=== PATIENT | male | born 1995 | race Caucasian/White ===

== ENCOUNTER 2016-09-08 16:55 | Inpatient (IN) | payer OTHER ==
[2016-09-08 17:58] LABS: Hematocrit 44 % (42-52); Hemoglobin 14.5 g/dl (14.0-18.0); Mean Corpuscular HGB Conc 33 g/dl (31-36); Mean Corpuscular Hemoglobin 29 pg (27-31); Mean Corpuscular Volume 88 fL (80-94); Mean Platelet Volume 8 um3 (7.4-10.4); Red Blood Count 4.97 10^6/ul (4.0-5.4); Red Cell Distribution Width 13 % (10.5-15); White Blood Count 4.8 10^3/ul (3.5-10.8)
[2016-09-08 18:12] LABS: ALT 77 U/L (7-52); AST 32 U/L (13-39); Albumin 4.6 g/dL (3.2-5.2); Alkaline Phosphatase 58 U/L (34-104); Anion Gap 4 mmol/L (2-11); BUN/Creatinine Ratio 8.2 (8-20); Blood Urea Nitrogen 7 mg/dL (6-24); CO2 Carbon Dioxide 31 mmol/L (22-32); Calcium 9.7 mg/dL (8.6-10.3); Chloride 102 mmol/L (101-111); EGFR Non-African American 112.7 (>60); Globulin 3.4 g/dL (2-4); Glucose 91 mg/dL (70-100); Potassium 3.8 mmol/L (3.5-5.0); Sodium 137 mmol/L (133-145)
[2016-09-08 18:18] LABS: Benzodiazepine Urine Screen None Detected (None Detect)
[2016-09-08 18:33] LABS: Acetaminophen < 15 mcg/mL; Alcohol < 10 mg/dL (<10); Salicylate < 2.50 mg/dL (<30)
[2016-09-08 18:37] LABS: Urine Bilirubin Negative (Negative); Urine Glucose Negative (Negative); Urine Nitrite Negative (Negative)
[2016-09-08 18:42] LABS: TSH (Thyroid Stimulating Horm) 1.16 mcIU/mL (0.34-5.60)
[2016-09-09] MEDS ORDERED: Acetaminophen TAB* 325 MG PO PRN (06:37)
[2016-09-09] MEDS ORDERED: Al Hydrox/Mg Hydrox/Simet LIQ* 30 ML UDC PO PRN (06:37)
[2016-09-09] MEDS: Fluticasone NASAL SPRAY 50MCG* 16 gm SPRAY BTL BOTH NARES SCH (10:53)
[2016-09-09] MEDS: Montelukast Sodium TAB* 10 MG PO SCH (10:54)
[2016-09-09] MEDS: Vitamin THERAPEUTIC TAB PO SCH (10:54)
[2016-09-09] MEDS: Fluoxetine LIQ* 20 MG/5 ML UDC PO SCH (10:54)
[2016-09-09] MEDS: CMCS:Atomoxetine(NF) 25 MG CAP PO SCH (10:54)
--- NOTE | 2016-09-09 11:22 | PN ---
MHU: Group Therapy Note - Service Type Service Type: [id number] Group Psychotherapy - Cognitive Behavioral Group Psychotherapy Note: Justice presented with flat and unvariable affect in programming. He responded to prompting in a direct fashion, and did not initiate discussion with either peers or staff.
--- NOTE | 2016-09-09 13:07 | HP ---
H&P (Free Text) History and Physical: HPI: ---- 20yo male patient with PPHx significant for Schizoid Personality d/o and ADHD presents to the [facility] by 945 sent from therapist after patient made suicidal statements in session. Patient reported thoughts of ending his life via jumping from his deck or swerving his car in traffic. Patient describes these thoughts as impulse thoughts which are fleeting. Patient denies hx of SI with plans. He denies hx of SIB and denies hx of suicide attempt. Patient can't identify a stressor, but reports has experienced this depression for a few months, and reports hx of prior depressive episodes starting in HS. Patient reports experiencing SI for ~2 weeks now. He describes them as "abstract thoughts", "more like pictures of hurting someone or of me getting hurt. Patient describes them as intrusive recently. He reports associated increased apathy, decreased energy and motivation. Patient reports decreased memory and concentration. He has not been reprimanded at work, but is concerned with his decreased productivity. He reports poor sleep, avg of 5 hrs per night, which is broken up. He rates the intensity of depression he feels today at 7/10. Patient endorses anhedonia. He denies current SI/HI and AH/VH. Patient reports no symptoms of psychosis nor were any noted on interview. Patient is in therapy. Patient on Straterra for ADHD and Prozac 15mg for mood. He reports Prozac is new, and is being up-titrated. He reports recent trial of Cymbalta was ineffective. Patient reports no hx of childhood emotional, physical, or sexual abuse. Patient reports no hx of abuse of alcohol and no illicit substance use hx. Patient lives alone. He denies access to firearms. She is amenable to med modification. Past Psych Hx: Inpt - This is patient's 1st Outpt - Seen at [facility] and has psychotherapy with Kika Peterson Psychotropic med hx - Prozac, Strattera, Cymbalta Suicide attempt Hx SIB Hx: Patient reports no hx of suicide attempt. Patient reports no hx of SIB. Substance Hx: Patient denies hx of alcohol abuse. Patient denies hx of use of illicit substances. UDS (-) for all substances on admission. Trauma Hx: Patient reports no hx of childhood emotional, physical, or sexual abuse. PMHx: ------ Patient denies hx of head trauma with LOC. Patient denies hx of seizures. Allergies: --------- Peanut Oil Allergy (Verified 09/09/16 10:24) Swelling Tree Nuts Allergy (Verified 09/09/16 10:24) Swelling dust and mold Allergy (Uncoded 09/09/16 10:24) Difficulty Breathing beans Adverse Reaction (Uncoded 09/09/16 10:24) Nausea And Vomiting legumes Adverse Reaction (Uncoded 09/09/16 10:24) Nausea And Vomiting Family Hx: --------- Patient reports, to his knowledge there is no one the family who has attempted or completed suicide. Patient reports, to his knowledge there is no one the family with NOE issues. Patient reports, to his knowledge there is no one the family with MH issues. Social Hx: -Patient born and raised in [place], [place] -Raised by mom and dad -Has 1 sibling, younger brother -Does not feel close with family -Reports his preference is solitude -Single, never , no children -Currently enrolled in a PhD program at [employer] -No legal hx -No access to firearms HOME MEDS: Home Medications Medication Instructions Recorded Confirmed Type Atomoxetine(NF) [Strattera(NF)] 50 mg PO DAILY 09/08/16 09/08/16 History Fluoxetine HCl [Prozac] 15 mg PO DAILY 09/08/16 09/08/16 History Fluticasone NASAL SPRAY 50MCG* 2 spray BOTH NARES DAILY 09/08/16 09/08/16 History [Flonase NASAL SPRAY 50MCG*] Melatonin 5 mg PO BEDTIME 09/08/16 09/08/16 History Montelukast Sodium TAB* [Singulair 10 mg PO DAILY 09/08/16 09/08/16 History TAB*] VITALS: Vital Signs (72 hours) 09/08/16 09/08/16 09/09/16 17:28 18:33 07:30 Temperature 98 F 97.8 F 97.5 F Pulse Rate 79 88 102 Respiratory 16 16 16 Rate Blood Pressure 108/69 117/64 123/72 (mmHg) O2 Sat by Pulse 99 99 99 Oximetry 09/09/16 09/09/16 09/09/16 08:12 08:25 09:33 Temperature 98.4 F 97.5 F Pulse Rate 96 102 Respiratory 16 16 16 Rate Blood Pressure 119/69 123/72 (mmHg) O2 Sat by Pulse 99 Oximetry 09/10/16 09/10/16 07:55 13:16 Temperature 98.4 F Pulse Rate 79 Respiratory 16 18 Rate Blood Pressure 85/49 (mmHg) O2 Sat by Pulse 98 Oximetry LABS: ----- Laboratory Tests 09/08/16 09/08/16 09/08/16 17:33 17:33 17:44 WBC 4.8 RBC 4.97 Hgb 14.5 Hct 44 MCV 88 MCH 29 MCHC 33 RDW 13 Plt Count 269 MPV 8 Neut % (Auto) 56.5 Lymph % (Auto) 32.6 [place] % (Auto) 7.7 Eos % (Auto) 2.5 Baso % (Auto) 0.7 Absolute Neuts (auto) 2.7 Absolute Lymphs (auto) 1.6 Absolute Monos (auto) 0.4 Absolute Eos (auto) 0.1 Absolute Basos (auto) 0 Absolute Nucleated RBC 0 Nucleated RBC % 0.1 Sodium Potassium Chloride Carbon Dioxide Anion Gap BUN Creatinine Est GFR ( Amer) Est GFR (Non-Af Amer) BUN/Creatinine Ratio Glucose Calcium Total Bilirubin AST ALT Alkaline Phosphatase Total Protein Albumin Globulin Albumin/Globulin Ratio TSH Urine Color Straw Urine Appearance Clear Urine pH 8.0 Ur Specific [place] 1.005 L Urine Protein Negative Urine Ketones Negative Urine Blood Negative Urine Nitrate Negative Urine Bilirubin Negative Urine Urobilinogen Negative Ur Leukocyte Esterase Negative Urine Glucose Negative Urine Ascorbic Acid TNP Salicylates Urine Opiates Screen None detected Acetaminophen Ur Barbiturates Screen None detected Ur Phencyclidine Scrn None detected Ur Amphetamines Screen None detected U Benzodiazepines Scrn None detected Urine Cocaine Screen None detected U Cannabinoids Screen None detected Serum Alcohol 09/08/16 17:44 WBC RBC Hgb Hct MCV MCH MCHC RDW Plt Count MPV Neut % (Auto) Lymph % (Auto) [place] % (Auto) Eos % (Auto) Baso % (Auto) Absolute Neuts (auto) Absolute Lymphs (auto) Absolute Monos (auto) Absolute Eos (auto) Absolute Basos (auto) Absolute Nucleated RBC Nucleated RBC % Sodium 137 Potassium 3.8 Chloride 102 Carbon Dioxide 31 Anion Gap 4 BUN 7 Creatinine 0.85 Est GFR ( Amer) 145.0 Est GFR (Non-Af Amer) 112.7 BUN/Creatinine Ratio 8.2 Glucose 91 Calcium 9.7 Total Bilirubin 0.70 AST 32 ALT 77 H Alkaline Phosphatase 58 Total Protein 8.0 Albumin 4.6 Globulin 3.4 Albumin/Globulin Ratio 1.4 TSH 1.16 Urine Color Urine Appearance Urine pH Ur Specific [place] Urine Protein Urine Ketones Urine Blood Urine Nitrate Urine Bilirubin Urine Urobilinogen Ur Leukocyte Esterase Urine Glucose Urine Ascorbic Acid Salicylates < 2.50 Urine Opiates Screen Acetaminophen < 15 Ur Barbiturates Screen Ur Phencyclidine Scrn Ur Amphetamines Screen U Benzodiazepines Scrn Urine Cocaine Screen U Cannabinoids Screen Serum Alcohol < 10 MSE: ----- Appearance - thin build male, looks stated age, fair hygeine, in NAD Behavior -calm, cooperative Speech - RRR, prosody wnl Eye Contact - good Mood - "depressed" Affect - depressed TP - linear TC - concerned with poor sleep and energy and decreased productivity at work Perception - no signs of psychosis reported or noted Orientation - A&Ox3 Cognition - intact Insight - poor to fair Judgement - poor to fair SI / HI - SI on admission, currently denies both ASSESSMENT: 1. Unspecified depressive d/o 2. Schizoid Personality d/o 3. ADHD PLAN: ------- 1. Continue admission to the [facility] for safety and symptom mx. 2. Continue Strattera 50mg po daily for ADHD mx. 3. Increase Prozac from 15mg to 30mg po daily for anxiety/mood. 4. Patient gives informed consent to start Wellbutin 75mg po BID for depressive symptoms. 5. Continue Melatonin 5mg po qhs for insomnia. 6. Patient gives informed consent to start Trazodone 50g po qhs for insomnia. 7. Continue obtaining collateral information from [facility] and
[2016-09-09] MEDS: Melatonin (NF) ** ENTER STRENGTH IN LABEL DIRECTIONS PO SCH (21:45)
[2016-09-09] MEDS: buPROPion TAB* 75 MG PO SCH (21:45)
[2016-09-09] MEDS: traZODone TAB* 50 MG TAB PO SCH (21:45)
[2016-09-10] MEDS: Montelukast Sodium TAB* 10 MG PO SCH (08:59)
[2016-09-10] MEDS: Vitamin THERAPEUTIC TAB PO SCH (08:59)
[2016-09-10] MEDS: CMCS:Atomoxetine(NF) 25 MG CAP PO SCH (08:59)
[2016-09-10] MEDS: Fluticasone NASAL SPRAY 50MCG* 16 gm SPRAY BTL BOTH NARES SCH (08:59)
[2016-09-10] MEDS: buPROPion TAB* 75 MG PO SCH ×2 (09:00→20:08)
[2016-09-10] MEDS: Fluoxetine LIQ* 20 MG/5 ML UDC PO SCH (09:24)
--- NOTE | 2016-09-10 17:44 | PN ---
Subjective - Subjective Service Type: 64540 Hosp care 15 min low complexity Subjective: Patient noted to participate in groups and milieu activities. Patient's affect is noticeably more full and his rate of speech and response is quicker. Patient reports ongoing depression, but reports a 3/10 intensity today down from the 6/10 intensity depression he felt on admission. Patient reports med compliance and denies med s/e. Patient reports his energy has increased and he noticed it was easier to get out of bed and start his day today. He reports increased interest in activities. He reports he has been "trying to improve my drawing skills". Patient visible in the milieu, but socially isolated. He reports improved sleep on Trazodone, reporting 9-10 hrs last night with no breaks in his sleep. He reports appetite is wnl. Patient denies SI/HI and AH/VH. Objective - Appearance Appearance: Thin Framed Dysmorphic Features: No Hygiene: Normal Grooming: Fairly Well Kept - Behavior Psychomotor Activities: Normal Exhibits Abnormal Movement: Yes - Attitude and Relatedness Attitude and Relatedness: Cooperative Eye Contact: Fair - Speech Quality: Unpressured Latencies: Normal Quantity: Appropriate - Mood Patient's Decription of Mood: "Okay" - Affect Observed Affect: Fair Affect Consistent with: Dysphoria - Thought Process Patient's Thought Process: Coherent Thought Content: No Passive Wish, No Suicidal Planning, No Homicidal Ideation, No Paranoid Ideation - Sensorium Experiencing Hallucinations: No, Sensorium is Clear Type of Hallucinations: Visual: No, Auditory: No, Command: No - Level of Consciousness Level of Consciousness: Alert Orientation: Yes Intact, Yes Orientated to Time, Yes Orientated to Place, Yes Orientated to Person - Impulse Control Impulse Control: Intact - Insight and Judgement Insight and Judgement: Fair - Group Participation Particating in Group Activities: Yes - Medication Management Medication Management Adherence: Yes Assessment - Assessment Merits Inpatient Hospitalization: For Immediate Safety, For Stabilization Inpatient DSM-IV Dx: 1. Unspecified depressive d/o. 2. Schizoid Personality d/ o. 3. ADHD Plan - Plan Treatment Plan: Name: GIOVANI CARLOS Birthdate: 1995 [id number] PLAN: ------- 1. Continue admission to the [facility] for safety and symptom mx. 2. Continue Strattera 50mg po daily for ADHD mx. 3. Continue Prozac 30mg po daily for anxiety/mood. 4. Continue Wellbutin 75mg po BID for depressive symptoms. 5. Continue Melatonin 5mg po qhs for insomnia. 6. Continue Trazodone 50g po qhs for insomnia. 7. Continue obtaining collateral information from [facility] and therapist Dr. Monae Salvador. 8. Patient to participate in milieu activities and groups. Continued Medication Management: Start Medication Medications: Current Medications Acetaminophen (Tylenol Tab*) 650 mg PO Q4H PRN PRN Reason: PAIN or TEMP > 101 F Al Hydrox/Mg Hydrox/Simethicone (Maalox Plus*) 30 ml PO Q4H PRN PRN Reason: INDIGESTION Atomoxetine HCl (Strattera(Nf)) 50 mg PO DAILY [facility] Last Admin: 09/10/16 08:59 Dose: 50 mg Bupropion HCl (Wellbutrin Tab*) 75 mg PO BID [facility] Last Admin: 09/10/16 09:00 Dose: 75 mg Fluoxetine HCl (Fluoxetine Liq*) 15 mg PO DAILY [facility] Last Admin: 09/10/16 09:24 Dose: 15 mg Fluticasone Propionate (Flonase Nasal [place] 50mcg*) 2 spray BOTH NARES DAILY [facility] Last Admin: 09/10/16 08:59 Dose: 2 spray Melatonin (Melatonin (Nf)) 1 tab PO BEDTIME [facility] Last Admin: 09/09/16 21:45 Dose: Not Given Montelukast Sodium (Singulair Tab*) 10 mg PO DAILY [facility] Last Admin: 09/10/16 08:59 Dose: 10 mg Multivitamins (Theragran Tab*) 1 tab PO DAILY [facility] Last Admin: 09/10/16 08:59 Dose: 1 tab Trazodone HCl (Desyrel Tab*) 50 mg PO BEDTIME [facility] Last Admin: 09/09/16 21:45 Dose: 50 mg - Discharge Plan Discharge Plan: Outpatient Follow Up Outpatient Program: Private Clinician(s)
[2016-09-10] MEDS: Melatonin (NF) ** ENTER STRENGTH IN LABEL DIRECTIONS PO SCH (21:05)
[2016-09-10] MEDS: traZODone TAB* 50 MG TAB PO SCH (21:46)
[2016-09-11 08:10] VITALS: BP 102/64
[2016-09-11] MEDS: CMCS:Atomoxetine(NF) 25 MG CAP PO SCH (09:44)
[2016-09-11] MEDS: buPROPion TAB* 75 MG PO SCH (09:46)
[2016-09-11] MEDS: Fluoxetine LIQ* 20 MG/5 ML UDC PO SCH (09:46)
[2016-09-11] MEDS: Fluticasone NASAL SPRAY 50MCG* 16 gm SPRAY BTL BOTH NARES SCH (09:46)
[2016-09-11] MEDS: Vitamin THERAPEUTIC TAB PO SCH (09:47)
[2016-09-11] MEDS: Montelukast Sodium TAB* 10 MG PO SCH (09:47)
--- NOTE | 2016-09-11 11:36 | DS ---
Subjective - Subjective Service Types: [id number] [facility] Day Mgmt simple under 30 min Discharge Date: 09/11/16 Subjective: Patient in group on my approach. His affect is again brighter than the day before. His pace is quicker as well. His response time and rate of speech are also improved from yesterday. Patient reports benefit from groups and understands medications are one part, but that engagement in psychotherapy is also important to diminishing symptoms and the frequency of depressive episodes. Patient again denies med s/e. He reports improved sleep , energy, and motivation. He denies SI/HI and AH/VH. Patient asked to present to his local ED if SI recurs. He was amenable and acknowledged understanding of his family and community supports. Objective - Appearance Appearance: Thin Framed Dysmorphic Features: No Hygiene: Normal Grooming: Well Kept - Behavior Psychomotor Activities: Normal Exhibits Abnormal Movement: No - Attitude and Relatedness Attitude and Relatedness: Cooperative Eye Contact: Fair - Speech Quality: Unpressured Latencies: Normal Quantity: Appropriate - Mood Patient's Decription of Mood: "Okay" - Affect Observed Affect: Fair Affect Consistent with: Euthymia - Thought Process Patient's Thought Process: Coherent Thought Content: No Passive Wish, No Suicidal Planning, No Homicidal Ideation, No Paranoid Ideation - Sensorium Experiencing Hallucinations: No, Sensorium is Clear Type of Hallucinations: Visual: No, Auditory: No, Command: No - Level of Consciousness Level of Consciousness: Alert Orientation: Yes Intact, Yes Orientated to Time, Yes Orientated to Place, Yes Orientated to Person - Impulse Control Impulse Control: Intact - Insight and Judgement Insight and Judgement: Fair - Group Participation Particating in Group Activities: Yes - Medication Management Medication Management Adherence: Yes Treatment Course & Assessment Clinical Course & Impression: HOSPITAL COURSE: 20yo male patient with PPHx significant for Schizoid Personality d/o and ADHD presents to the [facility] ED by 945 sent from therapist after patient made suicidal statements in session. Patient reported thoughts of ending his life via jumping from his deck or swerving his car in traffic. Patient describes these thoughts as impulse thoughts which are fleeting. Patient denies hx of SI with plans. He denies hx of SIB and denies hx of suicide attempt. Patient reports experiencing SI for ~2 weeks now. Patient describes them as intrusive recently. He reports associated increased apathy, decreased energy and motivation. Patient reports decreased memory and concentration. He has not been reprimanded at work, but is concerned with his decreased productivity. He reports poor sleep, avg of 5 hrs per night, which is broken up. He rates the intensity of depression he feels today at 7/10. Patient also endorses anhedonia. On admission, patient gives informed consent to start Wellbutrin 75mg po BID. Patient is on Straterra for ADHD and Prozac 15mg for mood. He reports Prozac is new, and is being up-titrated. Prozac was continued at 15mg po daily. For insomnia, patient was started on Trazodone 50mg po qhs. Patient was med compliant and tolerated the new med regimen without reports of s/e's. Patient was noticeably more full in affect and energetic 24hrs after initiation of Wellbutrin. He was less bradykinetic and less delayed in rate of speech and response time to questions. On day of discharge, patient showed further improvement in manner and affect. Patient reported fair sleep and appetite. He reported benefit from groups and continued to report benefit to mood on the new psychotropic med regimen. Patient was psychiatrically stable. He again today denies SI/HI and AH/VH. He requested discharge. Patient's target symptoms on admission have improved significantly. He reports being amenable to discharge plan. He has discussed his hospitalization with his parents. Patient will be discharged to home by [facility]. PERTINENT LABS: Laboratory Tests 09/08/16 09/08/16 09/08/16 17:33 17:33 17:44 WBC 4.8 RBC 4.97 Hgb 14.5 Hct 44 MCV 88 MCH 29 MCHC 33 RDW 13 Plt Count 269 MPV 8 Neut % (Auto) 56.5 Lymph % (Auto) 32.6 [place] % (Auto) 7.7 Eos % (Auto) 2.5 Baso % (Auto) 0.7 Absolute Neuts (auto) 2.7 Absolute Lymphs (auto) 1.6 Absolute Monos (auto) 0.4 Absolute Eos (auto) 0.1 Absolute Basos (auto) 0 Absolute Nucleated RBC 0 Nucleated RBC % 0.1 Sodium Potassium Chloride Carbon Dioxide Anion Gap BUN Creatinine Est GFR ( Amer) Est GFR (Non-Af Amer) BUN/Creatinine Ratio Glucose Calcium Total Bilirubin AST ALT Alkaline Phosphatase Total Protein Albumin Globulin Albumin/Globulin Ratio TSH Urine Color Straw Urine Appearance Clear Urine pH 8.0 Ur Specific [place] 1.005 L Urine Protein Negative Urine Ketones Negative Urine Blood Negative Urine Nitrate Negative Urine Bilirubin Negative Urine Urobilinogen Negative Ur Leukocyte Esterase Negative Urine Glucose Negative Urine Ascorbic Acid TNP Salicylates Urine Opiates Screen None detected Acetaminophen Ur Barbiturates Screen None detected Ur Phencyclidine Scrn None detected Ur Amphetamines Screen None detected U Benzodiazepines Scrn None detected Urine Cocaine Screen None detected U Cannabinoids Screen None detected Serum Alcohol 09/08/16 17:44 WBC RBC Hgb Hct MCV MCH MCHC RDW Plt Count MPV Neut % (Auto) Lymph % (Auto) [place] % (Auto) Eos % (Auto) Baso % (Auto) Absolute Neuts (auto) Absolute Lymphs (auto) Absolute Monos (auto) Absolute Eos (auto) Absolute Basos (auto) Absolute Nucleated RBC Nucleated RBC % Sodium 137 Potassium 3.8 Chloride 102 Carbon Dioxide 31 Anion Gap 4 BUN 7 Creatinine 0.85 Est GFR ( Amer) 145.0 Est GFR (Non-Af Amer) 112.7 BUN/Creatinine Ratio 8.2 Glucose 91 Calcium 9.7 Total Bilirubin 0.70 AST 32 ALT 77 H Alkaline Phosphatase 58 Total Protein 8.0 Albumin 4.6 Globulin 3.4 Albumin/Globulin Ratio 1.4 TSH 1.16 Urine Color Urine Appearance Urine pH Ur Specific [place] Urine Protein Urine Ketones Urine Blood Urine Nitrate Urine Bilirubin Urine Urobilinogen Ur Leukocyte Esterase Urine Glucose Urine Ascorbic Acid Salicylates < 2.50 Urine Opiates Screen Acetaminophen < 15 Ur Barbiturates Screen Ur Phencyclidine Scrn Ur Amphetamines Screen U Benzodiazepines Scrn Urine Cocaine Screen U Cannabinoids Screen Serum Alcohol < 10 Discharge Meds: Atomoxetine HCl (Strattera(Nf)) 50 mg PO DAILY [facility] Bupropion HCl (Wellbutrin Tab*) 75 mg PO BID [facility] Fluoxetine HCl 15 mg PO DAILY [facility] Fluticasone Propionate (Flonase Nasal [place] 50mcg*) 2 spray BOTH NARES DAILY [facility] Melatonin (Melatonin (Nf)) 1 tab PO BEDTIME [facility] Montelukast Sodium (Singulair Tab*) 10 mg PO DAILY [facility] Trazodone HCl (Desyrel Tab*) 50 mg PO BEDTIME [facility] Consultants: none Follow-Up: Appts for within the next 2 weeks scheduled by ANNABELLA for [facility](psychiatry and counseling) Clear for Discharge: Adequate Clinical Respons, Acceptable Safety Profile Inpatient DSM-IV Dx: 1. Unspecified depressive d/o. 2. Schizoid Personality d/ o. 3. ADHD Discharge Planning - Discharge Planning Discharge Plan: Outpatient Follow Up Outpatient Program: Counseling/Psych Services at [place] Recommendations for Continuing Care: Psychotherapy Medications: Current Medications Acetaminophen (Tylenol Tab*) 650 mg PO Q4H PRN PRN Reason: PAIN or TEMP > 101 F Al Hydrox/Mg Hydrox/Simethicone (Maalox Plus*) 30 ml PO Q4H PRN PRN Reason: INDIGESTION Atomoxetine HCl (Strattera(Nf)) 50 mg PO DAILY [facility] Last Admin: 09/11/16 09:44 Dose: 50 mg Bupropion HCl (Wellbutrin Tab*) 75 mg PO BID [facility] Last Admin: 09/11/16 09:46 Dose: 75 mg Fluoxetine HCl (Fluoxetine Liq*) 15 mg PO DAILY [facility] Last Admin: 09/11/16 09:46 Dose: 15 mg Fluticasone Propionate (Flonase Nasal [place] 50mcg*) 2 spray BOTH NARES DAILY [facility] Last Admin: 09/11/16 09:46 Dose: 2 spray Melatonin (Melatonin (Nf)) 1 tab PO BEDTIME [facility] Last Admin: 09/10/16 21:05 Dose: Not Given Montelukast Sodium (Singulair Tab*) 10 mg PO DAILY [facility] Last Admin: 09/11/16 09:47 Dose: 10 mg Multivitamins (Theragran Tab*) 1 tab PO DAILY [facility] Last Admin: 09/11/16 09:47 Dose: 1 tab Trazodone HCl (Desyrel Tab*) 50 mg PO BEDTIME [facility] Last Admin: 09/10/16 21:46 Dose: 50 mg Discharge Planning: Prescriptions provided for discharge [x] Yes [] No Follow up care details as per social work arrangements. Patient response to discharge plan: [] eager for discharge [x] agreeable with discharge plan [] ambivalent about discharge [] disagrees with discharge today
--- NOTE | 2016-09-11 11:58 | PN ---
MHU: Group Therapy Note - Service Type Service Type: [id number] Group Psychotherapy - Cognitive Behavioral Group Therapy ( CBT):Patient was attentive and participatory in CBT programming this morning, and remained in good behavioral control. Patient expressed positive insights regarding relevant treatment interventions and goals.
--- NOTE | 2016-09-15 11:21 | ED ---
I, Wan,Roselia, scribed for Rey Chavez MD on 09/08/16 at 1721 . Psychiatric Complaint - HPI Summary HPI Summary: This 20 y/o male [employer] student presents to ED as 945 for positive SI today. Pt is currently on prozac with last dose this morning. Negative OD or any other substance abuse today such as alcohol. Positive sleep disturbance. Negative paranoid thought or auditory hallucination. - History Of Current Complaint Hx Obtained From: Patient Onset/Duration: Lasting Hours, Still Present Timing: Constant Character: Depressed Aggravating Factor(s): Nothing Alleviating Factor(s): Nothing Related History: Positive For: Prior Psychiatric Issues Has Suicidal: Reports: Thoughts - Allergies/Home Medications Allergies/Adverse Reactions: Allergies Allergy/AdvReac Type Severity Reaction Status Date / Time Peanut Oil Allergy Swelling Verified 09/09/16 10:24 Tree Nuts Allergy Swelling Verified 09/09/16 10:24 dust and mold Allergy Difficulty Uncoded 09/09/16 10:24 Breathing beans AdvReac Nausea And Uncoded 09/09/16 10:24 Vomiting legumes AdvReac Nausea And Uncoded 09/09/16 10:24 Vomiting Home Medications: Home Medications Atomoxetine(NF) [Strattera(NF)] 50 mg PO DAILY 09/08/16 [History Confirmed 09/08] Fluticasone NASAL SPRAY 50MCG* [Flonase NASAL SPRAY 50MCG*] 2 spray BOTH NARES DAILY 09/08/16 [History Confirmed 09/08/16] Melatonin 5 mg PO BEDTIME 09/08/16 [History Confirmed 09/08/16] Montelukast Sodium TAB* [Singulair 10 MG TAB*] 10 mg PO DAILY 09/08/16 [History Confirmed 09/08/16] PMH/Surg Hx/FS Hx/Imm Hx Cardiovascular History: Denies: Hx Myocardial Infarction Psychiatric History: Reports: Hx Depression - Family History Known Family History: Negative: Diabetes - Social History Occupation: Student Alcohol Use: Occasionally Hx Tobacco Use: No Smoking Status (MU): Never Smoked Tobacco Review of Systems Negative: Fever, Chills Negative: Erythema Negative: Sore Throat Negative: Chest Pain Negative: Shortness Of Breath, Cough Negative: Abdominal Pain, Nausea Negative: dysuria, hematuria Negative: Myalgia, Edema Negative: Rash Neurological: Other - Negative dizziness All Other Systems Reviewed And Are Negative: Yes Physical Exam - Summary Physical Exam Summary: Constitutional: Well-developed, Well-nourished, Alert. (-) Distressed Skin: Warm, Dry HENT: Normocephalic; Atraumatic Eyes: Conjunctiva normal Neck: Musculoskeletal ROM normal neck. (-) JVD, (-) Stridor, (-) Tracheal deviation Cardio: Rhythm regular, rate normal, Heart sounds normal; Intact distal pulses; The pedal pulses are 2+ and symmetric. Radial pulses are 2+ and symmetric. (-) Murmur Pulmonary/Chest wall: Effort normal. (-) Respiratory distress, (-) Wheezes, (-) Rales Abd: Soft, (-) Tenderness, (-) Distension, (-) Guarding, (-) Rebound Musculoskeletal: (-) Edema Lymph: (-) Cervical adenopathy Neuro: Alert, Oriented x3 Psych: Mood and affect Normal Triage Information Reviewed: Yes Vital Signs On Initial Exam: Initial Vitals Temp Pulse Resp BP Pulse Ox 36.6 C 79 16 108/69 99 09/08/16 17:28 09/08/16 17:28 09/08/16 17:28 09/08/16 17:28 09/08/16 17:28 Vital Signs Reviewed: Yes Diagnostics - Vital Signs Vital Signs Temp Pulse Resp BP Pulse Ox 09/09/16 08:25 36.4 C 102 16 123/72 99 09/09/16 08:12 36.9 C 96 16 119/69 09/09/16 07:30 36.4 C 102 16 123/72 99 09/08/16 18:33 36.6 C 88 16 117/64 99 09/08/16 17:28 36.6 C 79 16 108/69 99 - Laboratory Lab Results: Lab Results 09/08/16 09/08/16 09/08/16 Range/Units 17:33 17:33 17:44 WBC 4.8 (3.5-10.8) 10^3/ul RBC 4.97 (4.0-5.4) 10^6/ul Hgb 14.5 (14.0-18.0) g/dl Hct 44 (42-52) % MCV 88 (80-94) fL MCH 29 (27-31) pg MCHC 33 (31-36) g/dl RDW 13 (10.5-15) % Plt Count 269 (150-450) 10^3/ul MPV 8 (7.4-10.4) um3 Neut % (Auto) 56.5 (38-83) % Lymph % (Auto) 32.6 (25-47) % Floyd % (Auto) 7.7 (1-9) % Eos % (Auto) 2.5 (0-6) % Baso % (Auto) 0.7 (0-2) % Absolute Neuts (auto) 2.7 (1.5-7.7) 10^3/ul Absolute Lymphs (auto) 1.6 (1.0-4.8) 10^3/ul Absolute Monos (auto) 0.4 (0-0.8) 10^3/ul Absolute Eos (auto) 0.1 (0-0.6) 10^3/ul Absolute Basos (auto) 0 (0-0.2) 10^3/ul Absolute Nucleated RBC 0 10^3/ul Nucleated RBC % 0.1 Sodium (133-145) mmol/L Potassium (3.5-5.0) mmol/L Chloride (101-111) mmol/L Carbon Dioxide (22-32) mmol/L Anion Gap (2-11) mmol/L BUN (6-24) mg/dL Creatinine (0.67-1.17) mg/dL Est GFR ( Amer) (>60) Est GFR (Non-Af Amer) (>60) BUN/Creatinine Ratio (8-20) Glucose (70-100) mg/dL Calcium (8.6-10.3) mg/dL Total Bilirubin (0.2-1.0) mg/dL AST (13-39) U/L ALT (7-52) U/L Alkaline Phosphatase (34-104) U/L Total Protein (6.4-8.9) g/dL Albumin (3.2-5.2) g/dL Globulin (2-4) g/dL Albumin/Globulin Ratio (1-3) TSH (0.34-5.60) mcIU/mL Urine Color Straw Urine Appearance Clear Urine pH 8.0 (5-9) Ur Specific [place] 1.005 L (1.010-1.030) Urine Protein Negative (Negative) Urine Ketones Negative (Negative) Urine Blood Negative (Negative) Urine Nitrate Negative (Negative) Urine Bilirubin Negative (Negative) Urine Urobilinogen Negative (Negative) Ur Leukocyte Esterase Negative (Negative) Urine Glucose Negative (Negative) Urine Ascorbic Acid TNP Salicylates (<30) mg/dL Urine Opiates Screen None detected (None Detect) Acetaminophen mcg/mL Ur Barbiturates Screen None detected (None Detect) Ur Phencyclidine Scrn None detected (None Detect) Ur Amphetamines Screen None detected (None Detect) U Benzodiazepines Scrn None detected (None Detect) Urine Cocaine Screen None detected (None Detect) U Cannabinoids Screen None detected (None Detect) Serum Alcohol (<10) mg/dL 09/08/16 Range/Units 17:44 WBC (3.5-10.8) 10^3/ul RBC (4.0-5.4) 10^6/ul Hgb (14.0-18.0) g/dl Hct (42-52) % MCV (80-94) fL MCH (27-31) pg MCHC (31-36) g/dl RDW (10.5-15) % Plt Count (150-450) 10^3/ul MPV (7.4-10.4) um3 Neut % (Auto) (38-83) % Lymph % (Auto) (25-47) % Floyd % (Auto) (1-9) % Eos % (Auto) (0-6) % Baso % (Auto) (0-2) % Absolute Neuts (auto) (1.5-7.7) 10^3/ul Absolute Lymphs (auto) (1.0-4.8) 10^3/ul Absolute Monos (auto) (0-0.8) 10^3/ul Absolute Eos (auto) (0-0.6) 10^3/ul Absolute Basos (auto) (0-0.2) 10^3/ul Absolute Nucleated RBC 10^3/ul Nucleated RBC % Sodium 137 (133-145) mmol/L Potassium 3.8 (3.5-5.0) mmol/L Chloride 102 (101-111) mmol/L Carbon Dioxide 31 (22-32) mmol/L Anion Gap 4 (2-11) mmol/L BUN 7 (6-24) mg/dL Creatinine 0.85 (0.67-1.17) mg/dL Est GFR ( Amer) 145.0 (>60) Est GFR (Non-Af Amer) 112.7 (>60) BUN/Creatinine Ratio 8.2 (8-20) Glucose 91 (70-100) mg/dL Calcium 9.7 (8.6-10.3) mg/dL Total Bilirubin 0.70 (0.2-1.0) mg/dL AST 32 (13-39) U/L ALT 77 H (7-52) U/L Alkaline Phosphatase 58 (34-104) U/L Total Protein 8.0 (6.4-8.9) g/dL Albumin 4.6 (3.2-5.2) g/dL Globulin 3.4 (2-4) g/dL Albumin/Globulin Ratio 1.4 (1-3) TSH 1.16 (0.34-5.60) mcIU/mL Urine Color Urine Appearance Urine pH (5-9) Ur Specific [place] (1.010-1.030) Urine Protein (Negative) Urine Ketones (Negative) Urine Blood (Negative) Urine Nitrate (Negative) Urine Bilirubin (Negative) Urine Urobilinogen (Negative) Ur Leukocyte Esterase (Negative) Urine Glucose (Negative) Urine Ascorbic Acid Salicylates < 2.50 (<30) mg/dL Urine Opiates Screen (None Detect) Acetaminophen < 15 mcg/mL Ur Barbiturates Screen (None Detect) Ur Phencyclidine Scrn (None Detect) Ur Amphetamines Screen (None Detect) U Benzodiazepines Scrn (None Detect) Urine Cocaine Screen (None Detect) U Cannabinoids Screen (None Detect) Serum Alcohol < 10 (<10) mg/dL Result Diagrams: 09/08/16 17:44 09/08/16 17:44 Lab Statement: Any lab studies that have been ordered have been reviewed, and results considered in the medical decision making process. Course/Dx - Differential Dx/Clinical Impression Provider Diagnosis: Depressive disorder - Physician Notifications Patient Is Medically Stable For: Psych Evaluation - at 1709 PM Discharge - Discharge Plan Condition: Improved Disposition: OTHER Discharge Disposition Comment: Signed out at shift change. Pending MHE The documentation as recorded by the Wan richard Soohyun accurately reflects the service I personally performed and the decisions made by , Rey Chavez MD.
== END 2016-09-11 13:00 | disposition home or self-care (01) | DRG 881 ==
LOC: ED 16:55 → BSU 09-09 09:01
PROVIDERS: ADMIT Psychiatry & Neurology Psychiatry; ATTEND Psychiatry & Neurology Psychiatry
PROC: GZHZZZZ Group Psychotherapy (ICD-10-PCS; principal; 2016-09-09)
DX: F32.9 Major depressive disorder, single episode, unspecified (principal); F60.1 Schizoid personality disorder; F90.9 Attention-deficit hyperactivity disorder, unspecified type; G47.00 Insomnia, unspecified; Z91.018 Allergy to other foods; Z91.010 Allergy to peanuts; Z91.048 Other nonmedicinal substance allergy status
CPT/HCPCS: 36415; 80053; 80307; 80320; 80329; 81003; 84443; 85025; 90853; 99222; 99231; 99238; A9270-GY; G0480